=== PATIENT | female | born 1995 | race Caucasian/White ===

== ENCOUNTER 2016-05-03 08:11 | Outpatient (CLI) ==
[2016-01-10 15:55] VITALS: BMI 26.6
[2016-05-03 08:48] LABS: BUN/CREATININE RATIO 17.64; CALCIUM 9.6 mg/dL (8.2-10.2); CREATININE 0.85 mg/dL (0.60-1.30)
--- NOTE | 2016-05-03 21:09 | MRI ---
EXAM: Lumbar spine MRI with and without contrast. HISTORY: Back pain. COMPARISON: Lumbar spine radiographs 10/01/[address] abdomen pelvis 01/10/2016. TECHNIQUE: Multiplanar, multisequence MR images were acquired of the lumbar spine before and after administration of intravenous contrast. FINDINGS: Transitional lumbar spinal anatomy is present. 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 There is mild accentuation of the usual lumbar lordosis with 1.5 mm retrolisthesis of L4 on L5 and 1.5 mm anterolisthesis of L5 on S1. There is d eformity of the left L5-S1 facet joint with a widened facet joint and an accessory ossicle or old un united fracture fragment between the left L5 inferior articular facet and left S1 superior articular facet. There is disc desiccation at L4-5. Conus medullaris ends at T12-L1 and has normal signal in tensity. The canal diameter is developmentally narrow. The visualized liver, spleen and kidneys are unremarkable. There are no paravertebral masses. T12-L1: There is a minor disc bulge that may be physiologic and a tiny chronic Schmorl's node along the L1 superior endplate. There is minor bilateral foraminal stenosis. L1-2: There is a minor disc bulge which may be physiologic. There is no central canal stenosis or foraminal stenosis. L2-3: There is a minor disc bulge and mild bilateral facet and ligamentum flavum hypertrophy withou t foraminal stenosis or central canal stenosis. L3-4: There is a minor disc bulge with a moderate broad-based left paracentral disc protrusion that extends to the left lateral recess and encroach on the left L4 nerve roots. Mild bilateral hypertr ophic facet arthropathy and ligamentum flavum hypertrophy is present and there is mild spinal stenos is, left lateral recess stenosis and minor left neural foraminal stenosis. AP diameter of the theca l sac is 8.8 mm. L4-5: There is a mild disc bulge and a small central disc protrusion. Mild to moderate bilateral h ypertrophic facet arthropathy and ligamentum flavum hypertrophy is present, greater on the right. T his causes mild right and minor left neural foraminal stenosis. There is no central canal stenosis. L5-S1: There is a minor posterior disc bulge and minor right and mild left hypertrophic facet arthr opathy. There is mild bilateral foraminal stenosis. IMPRESSION: 1. Moderate left paracentral disc protrusion L3-4 that extends to the left lateral recess and encro aches on the left L4 nerve roots. 2. 1.5 mm degenerative anterolisthesis L5 on S1. 3. 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 4. Mild spinal stenosis L3-4.
== END 2016-05-03 08:12 | disposition home or self-care (01) ==
LOC: RAD 08:11
PROVIDERS: ATTEND Family Medicine
DX: M54.9 Dorsalgia, unspecified (principal); Z00.00 Encounter for general adult medical examination without abnormal findings; F32.9 Major depressive disorder, single episode, unspecified
CPT/HCPCS: 36415; 80048

== ENCOUNTER 2016-10-26 08:31 | Emergency (ER) ==
[2016-10-26 08:37] VITALS: BP 145/92; TEMP 97.7; BMI 27.7
[2016-10-26] MEDS ORDERED: SODIUM CHLORIDE 1,000 ML IV STA (08:50)
[2016-10-26] MEDS ORDERED: MORPHINE 4 MG/ML SYRINGE IVP STA (08:50)
[2016-10-26] MEDS ORDERED: ZOFRAN 4 MG/2 ML IVP STA (08:50)
[2016-10-26 09:00] LABS: BASOPHILS % (AUTO) 0.2 % (0.0-3.0); EOSINOPHILS % (AUTO) 0.2 % (0.0-7.0); HEMATOCRIT 43.4 % (37.0-47.0); HEMOGLOBIN 14.9 g/dl (12.0-16.0); IMMATURE GRANULOCYTE % (AUTO) 0.1 % (0.0-5.0); LYMPHOCYTES # (AUTO) 1.9 K/uL (0.60-3.4); LYMPHOCYTES % (AUTO) 22.1 (10.0-50.0); MEAN CORPUSCULAR HGB CONC 34.3 (31.8-35.4); MEAN CORPUSCULAR VOLUME 87.3 fl (81.0-99.0); MONOCYTES # (AUTO) 0.6 K/uL (0.4-2.0); MONOCYTES % (AUTO) 6.9 (0-10); NEUTROPHILS # (AUTO) 6.1 K/ul (2.0-6.9); NEUTROPHILS % (AUTO) 70.5; PLATELET COUNT 304 10^3/uL (140-440); RED BLOOD COUNT 4.97 10^6/ul (4.20-5.40); WHITE BLOOD COUNT 8.66 K/ul (4.6-10.2)
[2016-10-26 09:16] LABS: SERUM PREGNANCY INTERNAL QC INTERNAL QC VALID
[2016-10-26 09:23] LABS: ALBUMIN 4.5 g/dL (3.4-5.0); ALBUMIN/GLOBULIN RATIO 1.36; ANION GAP 17.8; BILIRUBIN,TOTAL 0.82 mg/dL (0.00-1.20); BUN/CREATININE RATIO 17.2; CREATININE 0.93 mg/dL (0.60-1.30); POTASSIUM 3.8 mmol/L (3.5-5.10); TOTAL PROTEIN 7.8 g/dL (6.4-8.2)
[2016-10-26 09:29] LABS: BILIRUBIN,URINE 2+ (NEGATIVE); KETONES,URINE 3+ (NEGATIVE); LEUKOCYTE ESTERASE ,URINE Trace (NEGATIVE); NITRITE,URINE Negative (NEGATIVE); PH,URINE 5.5 (5-9); PROTEIN,URINE 2+ (NEGATIVE); URINE, BLOOD Trace-intact (NEGATIVE)
[2016-10-26 09:33] LABS: ADD URINE MICROSCOPIC YES
--- NOTE | 2016-10-26 09:37 | ED.PDOC ---
General ED Provider: Dr. EJ SINHA Chief Complaint: Abdominal Pain Stated Complaint: abdominal pain Time Seen by Physician: 08:33 (RUQ PAIN X 3 DAYS ) Mode of Arrival: Walk-In Information Source: Patient Exam Limitations: No limitations Primary Care Provider: IZABEL BAZAN Nursing and Triage Documentation Reviewed and Agree: Yes (SEEN WITH ROSA M IN THE ROOM AT ALL TIME ALSO PT FAMILY WERE PRESENT ) GI Complaint Exam - Abdominal Pain Complaint/Exam Onset: Gradual Duration: 3 DAYS HAD DIARRHEA 3 X NO BLOOD NO VOMITING Symptoms Are: Still present Timing: Intermittent Initial Severity: Moderate Current Severity: Mild Location of Pain: RUQ, Suprapubic Character: Reports: Aching Aggravating: Reports: None Alleviating: Reports: None Associated Signs and Symptoms: Reports: Diarrhea. Denies: Diaphoresis, Fever, Cough, Chest pain, Dizziness, Back pain, Constipation, Blood in stool, Dysuria, Urinary frequency, Decreased urine output, Decreased appetite, Vaginal bleeding , Vaginal discharge, Nausea, Vomiting, Sore throat, Decreased activity Related History: Reports: Similar episode AAA Risk Factors: Reports: None Cardiac Risk Factors: Reports: None Ectopic Risk Factors: Reports: None Ovarian Torsion Risk Factors: Reports: Reproductive age. Denies: Ovarian cysts , Ovarian tumors, Tubal ligation, Hysterectomy, w/ hx PID Surgical Obstruction Risk Factors: Reports: None Related Surgical History: Reports: None Patient Rh Status: Unknown Differential Diagnoses: Appendicitis, Bowel Obstruction, Constipation, Diverticulitis, Gastroenteritis, Pancreatitis, Renal Colic Review of Systems - Review Of Systems Constitutional: Reports: No symptoms Eyes: Reports: No symptoms Ears, Nose, Mouth, Throat: Reports: No symptoms Respiratory: Reports: No symptoms Cardiac: Reports: No symptoms GI: Reports: Abdominal pain, Diarrhea : Reports: No symptoms Musculoskeletal: Reports: No symptoms Skin: Reports: No symptoms Neurological: Reports: No symptoms Endocrine: Reports: No symptoms Hematologic/Lymphatic: Reports: No symptoms All Other Systems: Reviewed and Negative Past Medical History - Past Medical History Endocrine: Reports: None Cardiovascular: Reports: None Respiratory: Reports: None Hematological: Reports: None Gastrointestinal: Reports: None Genitourinary: Reports: None Neuro/Psych: Reports: None Musculoskeletal: Reports: None Cancer: Reports: None Last Menstrual Period: 2 weeks ago - Surgical History General Surgical History: Reports: Orthopedic (left wrist surgery for torn ligament) - Family History Family History: Reports: Unknown - Social History Smoking Status: Never smoker Hx Substance Use: No Alcohol Screening: None - Immunizations Tetanus Shot up to Date: Yes Physical Exam - Physical Exam Appearance: Well-appearing, No pain distress, Well-nourished Eyes: EMILY, EOMI, Conjunctiva clear ENT: Ears normal, Nose normal, Oropharynx normal Respiratory: Airway patent, Breath sounds clear, Breath sounds equal, Respirations nonlabored Cardiovascular: RRR, Pulses normal, No rub, No murmur GI/: Tender (RUQ) Musculoskeletal: Normal strength, ROM intact, No edema, No calf tenderness Skin: Warm, Dry, Normal color Neurological: Sensation intact, Motor intact, Reflexes intact, Cranial nerves intact, Alert, Oriented Psychiatric: Affect appropriate, Mood appropriate Critical Care Note - Critical Care Note Total Time (mins): 0 Course - Course Hematology/Chemistry: 10/26/16 08:55 10/26/16 08:55 Orders, Labs, Meds: Lab Review 10/26/16 10/26/16 08:55 09:20 WBC 8.66 RBC 4.97 Hgb 14.9 Hct 43.4 MCV 87.3 MCH 30.0 MCHC 34.3 RDW Coeff of Mery 12.4 Plt Count 304 Immature Gran % (Auto) 0.1 Neut % (Auto) 70.5 Lymph % (Auto) 22.1 Benson % (Auto) 6.9 Eos % (Auto) 0.2 Baso % (Auto) 0.2 Immature Gran # (Auto) 0.0 Neut # 6.1 Lymph # 1.9 Benson # 0.6 Eos # 0.0 Baso # 0.0 Sodium 140 Potassium 3.8 Chloride 106 Carbon Dioxide 20 L Anion Gap 17.8 BUN 16 Creatinine 0.93 Estimated GFR (MDRD) 77.00 BUN/Creatinine Ratio 17.20 Glucose 73 Calcium 10.0 Total Bilirubin 0.82 AST 18 ALT 15 Alkaline Phosphatase 39 L Total Protein 7.8 Albumin 4.5 Globulin 3.3 Albumin/Globulin Ratio 1.36 Amylase 28 Lipase 9 Serum , Qual Negative Urine Color Yellow Urine Clarity Cloudy Urine pH 5.5 Ur Specific [place] >=1.030 Urine Protein 2+ Urine Glucose (UA) Negative Urine Ketones 3+ Urine Blood Trace-intact Urine Nitrite Negative Urine Bilirubin 2+ Urine Urobilinogen 1.0 Ur Leukocyte Esterase Trace Urine Microscopic RBC 2-5 Ur Squamous Epith Cells 20-30 Urine Mucus 3+ Orders Category Date Time Status NPO REMINDER: IMAGING ONCE CARE 10/26/16 08:51 Completed NPO REMINDER: IMAGING ONCE CARE 10/26/16 08:52 Completed ED IV/MEDIPORT/POWERPORT .ONCE EMERGENCY 10/26/16 08:50 Active AMYLASE Stat LAB 10/26/16 08:55 Completed CBC W/ AUTO DIFF Stat LAB 10/26/16 08:55 Completed COMPREHENSIVE METABOLIC PANEL Stat LAB 10/26/16 08:55 Completed LIPASE Stat LAB 10/26/16 08:55 Completed SERUM Stat LAB 10/26/16 08:55 Completed URINALYSIS C & S IF INDICATED Stat LAB 10/26/16 09:20 Completed 0.9 % Sodium Chloride [Saline Flush] MEDS 10/26/16 08:49 Active 1 syr IVF PRN PRN Morphine Sulfate [Morphine 4 mg/ml Syringe] MEDS 10/26/16 08:50 Discontinued 4 mg IVP ONCE STA Ondansetron HCl/Pf [Zofran 4 mg/2 ml] MEDS 10/26/16 08:50 Discontinued 4 mg IVP ONCE STA Sodium Chloride 0.9% [Sodium Chloride] 1,000 ml MEDS 10/26/16 08:50 Discontinued IV BOLUS CHEST, 2 VIEWS PA & LAT Stat RADS 10/26/16 09:[address] ABDOMEN/PELVIS W CONTRAST Stat RADS 10/26/16 08:51 Ordered ULTRASOUND ABDOMEN, RT. UPPER QUAD [U/S ABDOMEN, RT. RADS 10/26/16 08:51 Completed UPPER QUAD] Stat Medications Generic Name Dose Route Start Last Admin Trade Name Freq PRN Reason Stop Dose Admin Sodium Chloride 1 syr 10/26/16 08:49 Saline Flush IVF PRN PRN To flush IV Discontinued Medications Generic Name Dose Route Start Last Admin Trade Name Freq PRN Reason Stop Dose Admin Sodium Chloride 1,000 mls @ 1,000 mls/hr 10/26/16 08:50 10/26/16 09:13 Sodium Chloride IV 10/26/16 09:49 1,000 mls/hr BOLUS STA Administration Morphine Sulfate 4 mg 10/26/16 08:50 10/26/16 09:15 Morphine 4 Mg/Ml Syringe IVP 10/26/16 08:51 4 mg ONCE STA Administration Ondansetron HCl 4 mg 10/26/16 08:50 10/26/16 09:14 Zofran 4 Mg/2 Ml IVP 10/26/16 08:51 4 mg ONCE STA Administration Vital Signs: Temp Pulse Resp BP Pulse Ox 10/26/16 08:32 97.7 F 85 18 145/92 H 97 Departure - Departure Time of Disposition: 11:20 ( explained the labs and imaging to the pt and family. i stressed that biliary sludge and bile duct polyp , pt understands need for surgery ) Disposition: HOME SELF-CARE Discharge Problem: Abdominal pain, Biliary sludge Instructions: Abdominal Pain (ED) Condition: Good Pt referred to PMD for follow-up: Yes Additional Instructions: Please call your Family Physician as soon as possible to schedule a follow-up appointment. you have gall bladder disease you must make sure you see your MD as soon possible . you may require surgery Allergies/Adverse Reactions: Allergies No Known Allergies Allergy (Verified 10/26/16 08:37) Home Medications: Ambulatory Orders Montelukast Sodium [Singulair] 10 mg PO DAILY 11/11/15 Norgestimate-Ethinyl Estradiol [Ortho Tri-Cyclen Lo Tablet] 1 each PO DAILY Albuterol Sulfate [Proair Hfa] 2 puff IH Q4H PRN 01/10/16 Disposition Discussed With: Patient, Family
--- NOTE | 2016-10-26 09:54 | US ---
EXAM: Right upper quadrant abdominal ultrasound. History: Right upper quadrant abdominal pain. Comparison: CT abdomen pelvis 01/10/2016 Technique: Multiple sonographic images through the abdomen were obtained. Color duplex Doppler was used to interrogate vascular flow. Findings: The visualized pancreas demonstrates no gross abnormality. No abdominal ascites. There is antegrad e flow within the main portal vein. No focal liver lesions identified sonographically. The peripor rell echoes within the liver are prominent. Gallbladder sludge. Small gallstones versus a few small gallbladder wall polyps measuring 3 mm. No gallbladder wall thickening. Common bile duct measures 0.2 cm in caliber. Limited visualization of the right kidney demonstrates no evidence for hydronephrosis. Impression: 1. Gallbladder sludge, small gallstones versus small gallbladder wall polyps. No gallbladder wall t hickening. 2. Prominent periportal echoes within the liver could be a normal variation or indicate underlying liver disease such as hepatitis.
--- NOTE | 2016-10-26 10:17 | DI ---
Exam: Two x-rays of the chest. Comparison: 01/10/2016. Reason for exam: Cough. FINDINGS: No pneumothorax, pleural effusion, or focal consolidation. The cardiac silhouette is not enlarged. The imaged osseous structures are unremarkable without acute fracture. Impression: No acute cardiopulmonary process.
--- NOTE | 2016-10-26 10:42 | CT ---
Exam: CT of the abdomen pelvis with intravenous contrast. Comparison: 01/10/2016. Reason for exam: Right upper quadrant pain. FINDINGS: No pleural effusion, or focal consolidation in the partially imaged lung bases. The liver, gallbladder, spleen, adrenal glands, and pancreas appear grossly unremarkable. No hydronephrosis, hydroureter, or nephrolithiasis. No inflammatory changes are seen within the abdominal or pelvic fat. No focal small bowel dilatatio n or transition point. The appendix is unremarkable. No pelvic free fluid. The imaged osseous structures are grossly unremarkable without acute fracture. Impression: No acute inflammatory findings are seen within the abdomen or pelvis.
== END 2016-10-26 11:28 | disposition home or self-care (01) ==
LOC: ED 08:31
DX: K82.9 Disease of gallbladder, unspecified (principal); R10.11 Right upper quadrant pain; R19.7 Diarrhea, unspecified; R10.30 Lower abdominal pain, unspecified
CPT/HCPCS: 36415; 80053; 81001; 82150; 83690; 84703; 85025; 96360; 96361; 96374; 96375; 99283

== ENCOUNTER 2016-11-24 17:48 | Emergency (ER) ==
[2016-11-24 17:54] VITALS: BP 148/80; TEMP 98; BMI 26.3
--- NOTE | 2016-11-24 17:55 | ED.PDOC ---
General ED Provider: Dr. ETIENNE ANGULO JR Chief Complaint: Non-specific Complaint Stated Complaint: ate 45 MINUTES AGO developed epigastric pain gallbladder surgery 11/07/16[End]98.0 90 16 98% 148/80 8/10 DECLINES TEST Time Seen by Physician: 17:55 Mode of Arrival: Walk-In Information Source: Patient Exam Limitations: No limitations Primary Care Provider: IZABEL BAZAN Nursing and Triage Documentation Reviewed and Agree: No Review of Systems - Review Of Systems Constitutional: Reports: Malaise Eyes: Reports: No symptoms Ears, Nose, Mouth, Throat: Reports: No symptoms Respiratory: Reports: No symptoms Cardiac: Reports: No symptoms GI: Reports: Abdominal pain (45 MINUTES SINCE PAIN BEGAN WAS EATING ), Diarrhea (SINCE CHOLECYSTECTOMY) : Reports: No symptoms Musculoskeletal: Reports: No symptoms Skin: Reports: No symptoms Neurological: Reports: No symptoms Endocrine: Reports: No symptoms Hematologic/Lymphatic: Reports: No symptoms All Other Systems: Other Past Medical History - Past Medical History Endocrine: Reports: None Cardiovascular: Reports: None Respiratory: Reports: None Hematological: Reports: None Gastrointestinal: Reports: None Genitourinary: Reports: None Neuro/Psych: Reports: None Musculoskeletal: Reports: None Cancer: Reports: None Last Menstrual Period: 1-2 weeks ago - Surgical History General Surgical History: Reports: Orthopedic (left wrist surgery for torn ligament) - Family History Family History: Reports: Unknown - Social History Smoking Status: Never smoker Hx Substance Use: No Alcohol Screening: None Physical Exam - Physical Exam Appearance: Well-appearing, Thin Pain Distress: Moderate Eyes: EMILY, EOMI, Conjunctiva clear ENT: Ears normal, Nose normal, Oropharynx normal Neck: Supple Respiratory: Airway patent, Breath sounds clear, Breath sounds equal, Respirations nonlabored Cardiovascular: RRR, Pulses normal, No rub, No murmur GI/: Soft, Tender (DIFFUSE MOSTLY MIDLINE TO LEFT OF MIDLINE AORTA PALPABLE CLINICALLY NOT ENLARGED) Musculoskeletal: Normal strength, ROM intact, No edema, No calf tenderness Skin: Warm, Dry, Normal color Neurological: Sensation intact, Motor intact, Reflexes intact, Cranial nerves intact, Alert, Oriented Psychiatric: Affect appropriate, Mood appropriate Interpretation - Radiology Interpretation Radiology Interpretation By: Radiologist Radiology Results: Negative Exam Interpreted: CT Scan Critical Care Note - Critical Care Note Total Time (mins): 0 Course - Course Hematology/Chemistry: 11/24/16 18:10 11/24/16 18:10 Orders, Labs, Meds: Lab Review 11/24/16 11/24/16 18:10 18:40 WBC 7.72 RBC 4.42 Hgb 13.3 Hct 38.4 MCV 86.9 MCH 30.1 MCHC 34.6 RDW Coeff of Mery 12.6 Plt Count 299 Immature Gran % (Auto) 0.3 Neut % (Auto) 46.5 Lymph % (Auto) 40.7 Lewis % (Auto) 8.9 Eos % (Auto) 3.2 Baso % (Auto) 0.4 Immature Gran # (Auto) 0.0 Neut # 3.6 Lymph # 3.1 Lewis # 0.7 Eos # 0.3 Baso # 0.0 D-Dimer (Manual) 148.31 Sodium 139 Potassium 3.7 Chloride 105 Carbon Dioxide 23 Anion Gap 14.7 BUN 15 Creatinine 0.85 Estimated GFR (MDRD) 85.00 BUN/Creatinine Ratio 17.64 Glucose 91 Calcium 9.7 Total Bilirubin 0.45 AST 29 ALT 31 Alkaline Phosphatase 47 Total Protein 7.3 Albumin 4.1 Globulin 3.2 Albumin/Globulin Ratio 1.28 Amylase 36 Lipase 22 Procalcitonin < 0.05 Serum , Qual Negative Urine Color Yellow Urine Clarity Clear Urine pH 6.0 Ur Specific [place] >=1.030 Urine Protein Trace Urine Glucose (UA) Negative Urine Ketones Trace Urine Blood Negative Urine Nitrite Negative Urine Bilirubin 1+ Urine Urobilinogen 0.2 Ur Leukocyte Esterase Negative Urine Microscopic WBC 0-2 Ur Squamous Epith Cells 0-2 H. pylori IgG Antibody Negative Orders Category Date Time Status ED IV/MEDIPORT/POWERPORT .ONCE EMERGENCY 11/24/16 18:00 Active AMYLASE Stat LAB 11/24/16 18:10 Completed CBC W/ AUTO DIFF Stat LAB 11/24/16 18:10 Completed COMPREHENSIVE METABOLIC PANEL Stat LAB 11/24/16 18:10 Completed D-DIMER Stat LAB 11/24/16 18:10 Completed H. PYLORI SCREEN Stat LAB 11/24/16 18:10 Completed LIPASE Stat LAB 11/24/16 18:10 Completed PROCALCITONIN Stat LAB 11/24/16 18:10 Completed SERUM Stat LAB 11/24/16 18:10 Completed URINALYSIS C & S IF INDICATED Stat LAB 11/24/16 18:40 Completed 0.9 % Sodium Chloride [Saline Flush] MEDS 11/24/16 18:00 Ordered 1 syr IVF PRN PRN Morphine Sulfate [Morphine 4 mg/ml Syringe] MEDS 11/24/16 18:02 Discontinued 2 mg IVP ONCE STA Ondansetron HCl/Pf [Zofran 4 mg/2 ml] MEDS 11/24/16 18:02 Discontinued 4 mg IVP ONCE STA CT ABDOMEN/PELVIS WO CONTRAST Stat RADS 11/24/16 18:00 Completed Medications Generic Name Dose Route Start Last Admin Trade Name Freq PRN Reason Stop Dose Admin Sodium Chloride 1 syr 11/24/16 18:00 11/24/16 18:36 Saline Flush IVF 1 syr PRN PRN Administration To flush IV Discontinued Medications Generic Name Dose Route Start Last Admin Trade Name Freq PRN Reason Stop Dose Admin Morphine Sulfate 2 mg 11/24/16 18:02 11/24/16 18:34 Morphine 4 Mg/Ml Syringe IVP 11/24/16 18:03 2 mg ONCE STA Administration Ondansetron HCl 4 mg 11/24/16 18:02 11/24/16 18:33 Zofran 4 Mg/2 Ml IVP 11/24/16 18:03 4 mg ONCE STA Administration Vital Signs: Temp Pulse Resp BP Pulse Ox 11/24/16 17:49 98.0 F 90 16 148/80 H 98 Departure - Departure Time of Disposition: 19:04 Disposition: HOME SELF-CARE Discharge Problem: Abdominal pain Qualifiers: Abdominal location: generalized Qualifier Code: (R10.84) Generalized abdominal pain Instructions: Abdominal Pain (ED) Condition: Good Pt referred to PMD for follow-up: Yes Additional Instructions: Bentyl for spasms may use [place] for pain - inform surgeon of visit clear liquids for six hours after pain return if fever over 101.0 recheck PMD 3-5 days Prescriptions: Dicyclomine HCl [Bentyl] 10 mg PO QID PRN #20 capsule PRN Reason: Abdominal Pain Allergies/Adverse Reactions: Allergies No Known Allergies Allergy (Verified 11/24/16 17:51) Home Medications: Ambulatory Orders Montelukast Sodium [Singulair] 10 mg PO DAILY 11/11/15 Norgestimate-Ethinyl Estradiol [Ortho Tri-Cyclen Lo Tablet] 1 each PO DAILY Albuterol Sulfate [Proair Hfa] 2 puff IH Q4H PRN 01/10/16 Dicyclomine HCl [Bentyl] 10 mg PO QID PRN #20 capsule 11/24/16 Hydrocodone Bit/Acetaminophen [[place] 5-325] 1 each PO Q4HR PRN 11/24/16
[2016-11-24 18:17] LABS: BASOPHILS % (AUTO) 0.4 % (0.0-3.0); EOSINOPHILS # (AUTO) 0.3 K/ul (0.0-0.7); EOSINOPHILS % (AUTO) 3.2 % (0.0-7.0); HEMATOCRIT 38.4 % (37.0-47.0); HEMOGLOBIN 13.3 g/dl (12.0-16.0); IMMATURE GRANULOCYTE % (AUTO) 0.3 % (0.0-5.0); LYMPHOCYTES # (AUTO) 3.1 K/uL (0.60-3.4); LYMPHOCYTES % (AUTO) 40.7 (10.0-50.0); MEAN CORPUSCULAR HEMOGLOBIN 30.1 pg (27.0-31.0); MEAN CORPUSCULAR HGB CONC 34.6 (31.8-35.4); MEAN CORPUSCULAR VOLUME 86.9 fl (81.0-99.0); MONOCYTES # (AUTO) 0.7 K/uL (0.4-2.0); MONOCYTES % (AUTO) 8.9 (0-10); NEUTROPHILS # (AUTO) 3.6 K/ul (2.0-6.9); NEUTROPHILS % (AUTO) 46.5; PLATELET COUNT 299 10^3/uL (140-440); RED BLOOD COUNT 4.42 10^6/ul (4.20-5.40); WHITE BLOOD COUNT 7.72 K/ul (4.6-10.2)
[2016-11-24 18:27] LABS: H. PYLORI ANTIBODY NEGATIVE (NEGATIVE); H.PYLORI INTERNAL QC INTERNAL QC VALID
[2016-11-24 18:29] LABS: SERUM PREGNANCY INTERNAL QC INTERNAL QC VALID
[2016-11-24] MEDS: ZOFRAN 4 MG/2 ML IVP STA (18:33)
[2016-11-24] MEDS: MORPHINE 4 MG/ML SYRINGE IVP STA (18:34)
[2016-11-24 18:35] LABS: ALBUMIN 4.1 g/dL (3.4-5.0); ALBUMIN/GLOBULIN RATIO 1.28; ANION GAP 14.7; BILIRUBIN,TOTAL 0.45 mg/dL (0.00-1.20); BUN/CREATININE RATIO 17.64; CALCIUM 9.7 mg/dL (8.2-10.2); CREATININE 0.85 mg/dL (0.60-1.30); POTASSIUM 3.7 mmol/L (3.5-5.10); TOTAL PROTEIN 7.3 g/dL (6.4-8.2)
--- NOTE | 2016-11-24 18:48 | CT ---
EXAM: CT scan of the abdomen and pelvis without contrast HISTORY: Abdominal pain TECHNIQUE: Imaging of the abdomen and pelvis was performed without contrast. 3 mm thin axial image s and coronal and sagittal reconstructions were provided for interpretation. Comparison CT scan of the abdomen and pelvis dated 10/26/2016. FINDINGS: The liver, spleen, pancreas, adrenal glands and kidneys appear normal. The proximal uret ers are normal size. The small and large bowel loops are normal caliber. There has been previous c holecystectomy. There is no free air. No acute abnormalities are seen within the anterior abdomina l wall. The helical images obtained through the pelvis demonstrate a normal appearance of the rectum, urinar y bladder. There is no free fluid seen within the pelvis. There is a normal appearance of the appen sabas. Lung bases are clear. No lytic or blastic lesions are seen within the osseous structures. IMPRESSION: There is no bowel obstruction or acute inflammatory change seen within the abdomen and pelvis. There is no ureteral obstruction.
[2016-11-24 18:55] LABS: BILIRUBIN,URINE 1+ (NEGATIVE); KETONES,URINE Trace (NEGATIVE); LEUKOCYTE ESTERASE ,URINE Negative (NEGATIVE); NITRITE,URINE Negative (NEGATIVE); PROTEIN,URINE Trace (NEGATIVE); URINE, BLOOD Negative (NEGATIVE)
[2016-11-24 18:58] LABS: ADD URINE MICROSCOPIC YES
== END 2016-11-24 19:27 | disposition home or self-care (01) ==
LOC: ED 17:48
DX: R10.84 Generalized abdominal pain (principal); Z90.49 Acquired absence of other specified parts of digestive tract
CPT/HCPCS: 36415; 80053; 81001; 82150; 83690; 84145; 84703; 85025; 85379; 86677; 96374; 96375; 99283

== ENCOUNTER 2017-03-27 13:44 | Outpatient (CLI) ==
[2017-03-27 14:05] LABS: BASOPHILS % (AUTO) 0.3 % (0.0-3.0); EOSINOPHILS # (AUTO) 0.1 K/ul (0.0-0.7); EOSINOPHILS % (AUTO) 0.8 % (0.0-7.0); HEMATOCRIT 40.5 % (37.0-47.0); HEMOGLOBIN 13.9 g/dl (12.0-16.0); IMMATURE GRANULOCYTE % (AUTO) 0.1 % (0.0-5.0); LYMPHOCYTES # (AUTO) 2.3 K/uL (0.60-3.4); LYMPHOCYTES % (AUTO) 29.3 (10.0-50.0); MEAN CORPUSCULAR HGB CONC 34.3 (31.8-35.4); MEAN CORPUSCULAR VOLUME 87.3 fl (81.0-99.0); MONOCYTES # (AUTO) 0.6 K/uL (0.4-2.0); MONOCYTES % (AUTO) 7.8 (0-10); NEUTROPHILS # (AUTO) 4.8 K/ul (2.0-6.9); NEUTROPHILS % (AUTO) 61.7; PLATELET COUNT 347 10^3/uL (140-440); RED BLOOD COUNT 4.64 10^6/ul (4.20-5.40); WHITE BLOOD COUNT 7.82 K/ul (4.6-10.2)
[2017-03-27 14:11] LABS: ADD URINE MICROSCOPIC NO; BILIRUBIN,URINE Negative (NEGATIVE); KETONES,URINE Negative (NEGATIVE); LEUKOCYTE ESTERASE ,URINE Negative (NEGATIVE); NITRITE,URINE Negative (NEGATIVE); PROTEIN,URINE Negative (NEGATIVE); URINE, BLOOD Negative (NEGATIVE)
[2017-03-27 15:03] LABS: ALBUMIN/GLOBULIN RATIO 1.18; BILIRUBIN,TOTAL 1.18 mg/dL (0.00-1.20); BUN/CREATININE RATIO 14.81; CREATININE 0.81 mg/dL (0.60-1.30); TOTAL PROTEIN 7.4 g/dL (6.4-8.2)
== END 2017-03-27 13:45 | disposition home or self-care (01) ==
LOC: LAB 13:44
PROVIDERS: ATTEND Family Medicine
DX: R10.9 Unspecified abdominal pain (principal)
CPT/HCPCS: 36415; 80053; 81001; 82150; 83690; 85025

== ENCOUNTER 2018-05-28 19:53 | Emergency (ER) ==
[2018-05-28 20:03] VITALS: BP 124/79; TEMP 100.7; BMI 29.1
[2018-05-28] MEDS ORDERED: LACTATED RINGERS 1,000 ML IV STA (20:09)
[2018-05-28 20:13] LABS: URINE PREGNANCY TEST NEGATIVE (NEGATIVE)
[2018-05-28] MEDS ORDERED: ZOFRAN 4 MG/2 ML IVP STA (20:19)
[2018-05-28] MEDS ORDERED: MORPHINE 4 MG/ML SYRINGE IVP STA (20:19)
--- NOTE | 2018-05-28 20:45 | ED.PDOC ---
General ED Provider: Dr. MARLEY GROVES Chief Complaint: Abdominal Pain Stated Complaint: Patient is a 23 year old female comes to the ER with a 4 day history Watery diarrhea, then today started having sharp lower abdominal pain radiating to the back. Denies any nausea or vomiting. But not been Drinking enough. Time Seen by Physician: 20:05 Mode of Arrival: Walk-In Information Source: Patient Exam Limitations: No limitations Primary Care Provider: IZABEL BAZAN Nursing and Triage Documentation Reviewed and Agree: Yes Does patient meet sepsis criteria?: Yes If yes, has appropriate treatment been initiated?: Yes System Inflammatory Response Syndrome: Pulse >90 BPM Sepsis Protocol: For patient's 13 years and over: Temp is 96.8 and below OR 101 and greater Pulse >90 BPM Resp >20/minute Acutely Altered Mental Status Are patient's symptoms suggestive of a new infection, such as: -Pneumonia -Skin, Soft Tissue -Endocarditis -UTI -Bone, Joint Infection -Implantable Device -Acute Abdominal Infection -Wound Infection -Meningitis -Blood Stream Catheter Infection -Unknown GI Complaint Exam - Abdominal Pain Complaint/Exam Onset: Sudden Duration: 4 days worse today Symptoms Are: Still present Timing: Constant Initial Severity: Moderate Current Severity: Moderate Location of Pain: RLQ, LUQ Radiates To: Reports: Back Character: Reports: Sharp, Dull, Aching Aggravating: Reports: None Alleviating: Reports: None Associated Signs and Symptoms: Reports: Fever, Diarrhea AAA Risk Factors: Reports: None Cardiac Risk Factors: Reports: None Ectopic Risk Factors: Reports: None Ovarian Torsion Risk Factors: Reports: Reproductive age Surgical Obstruction Risk Factors: Reports: None Related Surgical History: Reports: None Patient Rh Status: Unknown Abdominal Findings: Present: Rebound tenderness, McBurney's Point tender Differential Diagnoses: Appendicitis, Gastroenteritis, UTI, , Ovarian Cyst Review of Systems - Review Of Systems Constitutional: Reports: Fever Eyes: Reports: No symptoms Ears, Nose, Mouth, Throat: Reports: No symptoms Respiratory: Reports: No symptoms Cardiac: Reports: No symptoms GI: Reports: Abdominal pain, Diarrhea : Reports: No symptoms Musculoskeletal: Reports: No symptoms Skin: Reports: No symptoms Neurological: Reports: No symptoms Endocrine: Reports: No symptoms Hematologic/Lymphatic: Reports: No symptoms All Other Systems: Reviewed and Negative Past Medical History - Past Medical History Endocrine: Reports: None Cardiovascular: Reports: None Respiratory: Reports: None Hematological: Reports: None Gastrointestinal: Reports: None Genitourinary: Reports: None Neuro/Psych: Reports: None Musculoskeletal: Reports: None Cancer: Reports: None Last Menstrual Period: DUE TODAY OR TOMORROW - Surgical History General Surgical History: Reports: Orthopedic (left wrist surgery for torn ligament) - Family History Family History: Reports: Unknown - Social History Smoking Status: Never smoker Hx Substance Use: No Alcohol Screening: Occasionally Physical Exam - Physical Exam Appearance: Ill-appearing Pain Distress: Moderate Neck: Supple Respiratory: Airway patent, Breath sounds clear, Breath sounds equal, Respirations nonlabored Cardiovascular: Tachycardia GI/: Soft, Tender Musculoskeletal: Normal strength, ROM intact, No edema, No calf tenderness Skin: Warm, Dry, Normal color Neurological: Sensation intact, Motor intact, Reflexes intact, Alert, Oriented Psychiatric: Anxious Interpretation - Radiology Interpretation Radiology Interpretation By: Radiologist Radiology Results: Negative Exam Interpreted: CT Scan (Abdomen and pelvis ) Critical Care Note - Critical Care Note Total Time (mins): 0 Course - Course Hematology/Chemistry: 05/28/18 20:20 05/28/18 20:20 Orders, Labs, Meds: Lab Review 05/28/18 05/28/18 05/28/18 20:05 20:05 20:20 WBC 13.20 H RBC 4.46 Hgb 13.6 Hct 39.1 MCV 87.7 MCH 30.5 MCHC 34.8 RDW Coeff of Mery 12.3 Plt Count 284 Immature Gran % (Auto) 0.3 Neut % (Auto) 82.2 Lymph % (Auto) 6.9 L [place] % (Auto) 10.4 H Eos % (Auto) 0.1 Baso % (Auto) 0.1 Immature Gran # (Auto) 0.0 Neut # (Auto) 10.9 H Lymph # (Auto) 0.9 [place] # (Auto) 1.4 Eos # (Auto) 0.0 Baso # (Auto) 0.0 Sodium Potassium Chloride Carbon Dioxide Anion Gap BUN Creatinine Estimated GFR (MDRD) BUN/Creatinine Ratio Glucose Calcium Total Bilirubin AST ALT Alkaline Phosphatase Total Protein Albumin Globulin Albumin/Globulin Ratio Amylase Lipase Urine Color Yellow Urine Clarity Clear Urine pH 5.5 Ur Specific [place] >=1.030 Urine Protein Negative Urine Glucose (UA) Negative Urine Ketones 2+ Urine Blood Negative Urine Nitrite Negative Urine Bilirubin Negative Urine Urobilinogen 0.2 Ur Leukocyte Esterase Negative Urine Test Negative Influ A Molecular Assay Influ B Molecular Assay 05/28/18 05/28/18 20:20 20:23 WBC RBC Hgb Hct MCV MCH MCHC RDW Coeff of Mery Plt Count Immature Gran % (Auto) Neut % (Auto) Lymph % (Auto) [place] % (Auto) Eos % (Auto) Baso % (Auto) Immature Gran # (Auto) Neut # (Auto) Lymph # (Auto) [place] # (Auto) Eos # (Auto) Baso # (Auto) Sodium 141.0 Potassium 3.51 Chloride 105.1 Carbon Dioxide 24.7 Anion Gap 14.71 BUN 13.9 Creatinine 0.80 Estimated GFR (MDRD) 90.00 BUN/Creatinine Ratio 17.37 Glucose 118.8 H Calcium 9.60 Total Bilirubin 0.56 AST 24.1 ALT 17.2 Alkaline Phosphatase 42.8 Total Protein 7.37 Albumin 4.33 Globulin 3.04 Albumin/Globulin Ratio 1.42 Amylase 78.6 Lipase 42.6 Urine Color Urine Clarity Urine pH Ur Specific [place] Urine Protein Urine Glucose (UA) Urine Ketones Urine Blood Urine Nitrite Urine Bilirubin Urine Urobilinogen Ur Leukocyte Esterase Urine Test Influ A Molecular Assay Negative by naat Influ B Molecular Assay Negative by naat Orders Category Date Time Status ED IV/MEDIPORT/POWERPORT .ONCE EMERGENCY 05/28/18 20:09 Active AMYLASE Stat LAB 05/28/18 20:20 Completed CBC W/ AUTO DIFF Stat LAB 05/28/18 20:20 Completed COMPREHENSIVE METABOLIC PANEL Stat LAB 05/28/18 20:20 Completed FLU A/B MOLECULAR Stat LAB 05/28/18 20:23 Completed LIPASE Stat LAB 05/28/18 20:20 Completed MOLECULAR GROUP A STREP Stat LAB 05/28/18 20:23 Completed URINALYSIS C & S IF INDICATED Stat LAB 05/28/18 20:05 Completed URINE Stat LAB 05/28/18 20:05 Completed 0.9 % Sodium Chloride [Saline Flush] MEDS 05/28/18 20:09 Ordered 1 syr IVF PRN PRN Morphine Sulfate [Morphine 4 mg/ml Syringe] MEDS 05/28/18 20:19 Discontinued 4 mg IVP ONCE STA Ondansetron HCl/Pf [Zofran 4 mg/2 ml] MEDS 05/28/18 20:19 Discontinued 4 mg IVP ONCE STA Ringers Lactated Solution [Lactated Ringers] 1,000 ml MEDS 05/28/18 20:[address] ABD/PEL WO RENAL STONE PROT Stat RADS 05/28/18 20:43 Completed Medications Generic Name Dose Route Start Last Admin Trade Name Willa PRN Reason Stop Dose Admin Sodium Chloride 1 syr 05/28/18 20:09 05/28/18 20:40 Saline Flush IVF 1 syr PRN PRN Administration To flush IV Discontinued Medications Generic Name Dose Route Start Last Admin Trade Name Willa PRN Reason Stop Dose Admin Lactated Ringer's 1,000 mls @ 1,000 mls/hr 05/28/18 20:09 05/28/18 20:38 Lactated Ringers IV 05/28/18 21:08 1,000 mls/hr BOLUS STA Administration Morphine Sulfate 4 mg 05/28/18 20:19 05/28/18 20:40 Morphine 4 Mg/Ml Syringe IVP 05/28/18 20:20 4 mg ONCE STA Administration Ondansetron HCl 4 mg 05/28/18 20:19 05/28/18 20:39 Zofran 4 Mg/2 Ml IVP 05/28/18 20:20 4 mg ONCE STA Administration Vital Signs: Temp Pulse Resp BP Pulse Ox 05/28/18 19:53 100.7 F H 118 H 20 124/79 97 Departure - Departure Time of Disposition: 21:59 Disposition: HOME SELF-CARE Discharge Problem: Abdominal pain, Gastroenteritis and colitis, viral Instructions: Gastroenteritis (ED) Condition: Stable Pt referred to PMD for follow-up: Yes IPMP verified?: No Additional Instructions: Push fluids Follow up with PCP in 3 days Continue to take Bentyl as needed for abdominal cramp. Use OTC Imodium Prescriptions: Dicyclomine HCl [Bentyl] 10 mg PO TID PRN #20 capsule PRN Reason: Abdominal Pain Allergies/Adverse Reactions: Allergies No Known Allergies Allergy (Verified 05/28/18 19:56) Home Medications: Ambulatory Orders Montelukast Sodium [Singulair] 10 mg PO DAILY 11/11/15 Norgestimate-Ethinyl Estradiol [Ortho Tri-Cyclen Lo Tablet] 1 each PO DAILY Albuterol Sulfate [Proair Hfa] 2 puff IH Q4H PRN 01/10/16 Dicyclomine HCl [Bentyl] 10 mg PO QID PRN #20 capsule 11/24/16 Dicyclomine HCl [Bentyl] 10 mg PO TID PRN #20 capsule 05/28/18
--- NOTE | 2018-05-28 21:36 | CT ---
Exam: CT of the abdomen and pelvis without contrast History: Lower abdomen pain Technique: [address] of the abdomen and pelvis without intravascular contrast FINDINGS: The lung bases are clear. No significant liver abnormality. The adrenals, pancreas and s pleen are unremarkable. The stomach and hiatus are unremarkable.Prior cholecystectomy. Kidneys and proximal collecting system are unremarkable. The appendix is normal. Bowel loops demonstrate normal caliber. No inflamatory change seen in the mesentery or retroperitoneum. Vascular structures appea r normal by noncontrast CT.Low density periaortic lymph nodes are stable from prior studies dated eufemia k to 01/10/2016. Pelvic genitourinary structures appear normal. Pelvic bowel loops are unremarkable. No inflammatory change in the pelvic fat. No acute abnormality of the abdominal or pelvic skeleton. 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 Impression: 1. No inflammatory process, bowel or urinary obstruction is seen. No acute findings of the abdomen or pelvis.
== END 2018-05-28 22:13 | disposition home or self-care (01) ==
LOC: ED 19:53
DX: A08.4 Viral intestinal infection, unspecified (principal)
CPT/HCPCS: 36415; 74176; 80053; 81001; 81025; 82150; 83690; 85025; 87502; 87651; 96360; 96375; 99283